=== PATIENT | female | born 1965 | race Caucasian/White ===

== ENCOUNTER 2024-06-16 11:52 | Day surgery (SDC) | payer BC, OTHER ==
[~2024-06-16 11:52] MED LIST: Pilocarpine 4% Ophth Soln 15 ML Bot EYERT SCH
[2024-06-16] MEDS: LORazepam 0.5 MG Tab PO PRN (12:53)
[2024-06-16] MEDS: Polymyxin B/Trimethoprim 10 ML Bottle EYERT SCH (13:02)
[2024-06-16] MEDS: Brimonidine 0.2% Ophth Soln 5 ML Bottle EYERT SCH (13:07)
[2024-06-16] MEDS: Phenylephrine 2.5% Ophth Soln 2 ML Bot EYERT SCH (13:12)
[2024-06-16] MEDS: Tropicamide 1% Ophth Soln 3 ML Bottle EYERT SCH (13:17)
[2024-06-16] MEDS: Tetracaine HCl/PF 0.5% 4 ML Bottle EYEBOTH SCH (13:58)
[2024-06-16] MEDS: Lidocaine 1% PF 2 ML SDV INJECT SCH (14:14)
[2024-06-16] MEDS: Cefuroxime 10 MG/ML SYRINGE EYERT SCH (14:26)
== END 2024-06-16 14:40 | disposition home or self-care (01) ==
LOC: JD.SDS 11:52
PROVIDERS: ATTEND Ophthalmology
DX: H25.813 Combined forms of age-related cataract, bilateral (principal); I10 Essential (primary) hypertension; E78.2 Mixed hyperlipidemia; J45.909 Unspecified asthma, uncomplicated; Z79.899 Other long term (current) drug therapy; Z91.041 Radiographic dye allergy status
CPT/HCPCS: 66984; A9270; J0697; J3490; V2632

== ENCOUNTER 2024-07-07 06:54 | Day surgery (SDC) | payer BC, OTHER ==
[2024-07-07] MEDS: Polymyxin B/Trimethoprim 10 ML Bottle EYELF SCH (07:24)
[2024-07-07] MEDS: Brimonidine 0.2% Ophth Soln 5 ML Bottle EYELF SCH (07:28)
[2024-07-07] MEDS: Phenylephrine 2.5% Ophth Soln 2 ML Bot EYELF SCH (07:33)
[2024-07-07] MEDS: Tropicamide 1% Ophth Soln 3 ML Bottle EYELF SCH (07:37)
[2024-07-07] MEDS: Tetracaine HCl/PF 0.5% 4 ML Bottle EYEBOTH SCH (08:06)
[2024-07-07] MEDS: Lidocaine 1% PF 2 ML SDV INJECT SCH (08:26)
[2024-07-07] MEDS: Pilocarpine 4% Ophth Soln 15 ML Bot EYELF SCH (08:39)
[2024-07-07] MEDS: Cefuroxime 10 MG/ML SYRINGE EYELF SCH (08:39)
== END 2024-07-07 08:46 ==
LOC: JD.SDS 06:54
PROVIDERS: ATTEND Ophthalmology
DX: H25.812 Combined forms of age-related cataract, left eye (principal); H52.31 Anisometropia; I10 Essential (primary) hypertension; E78.2 Mixed hyperlipidemia; J45.909 Unspecified asthma, uncomplicated; Z79.899 Other long term (current) drug therapy
CPT/HCPCS: 66984; A9270; J0697; J3490

== ENCOUNTER 2024-10-02 18:15 | Emergency (ER) | payer BC, OTHER ==
[2024-10-02 18:49] LABS: BASOPHILS ABSOLUTE AUTO 0.1 K/mm3 (0.0-0.2); BASOPHILS PERCENT AUTO 0.5 % (0.0-1.0); EOSINOPHILS ABSOLUTE AUTO 0.1 K/mm3 (0.0-0.4); EOSINOPHILS PERCENT AUTO 1.1 % (0.0-6.0); HEMATOCRIT 43.8 % (37.0-47.0); HEMOGLOBIN 14.1 gm/dl (12.0-16.0); IMMATURE GRAN ABSOLUTE AUTO 0.03 K/mm3 (0.00-0.05); IMMATURE GRAN PERCENT AUTO 0.3 % (0.0-0.4); LYMPHOCYTES ABSOLUTE AUTO 1.5 K/mm3 (1.0-4.8); LYMPHOCYTES PERCENT AUTO 15.1 % (24.0-44.0); MEAN CORPUSCULAR HEMOGLOBIN 27.9 pg (28.0-32.0); MEAN CORPUSCULAR HGB CONC 32.2 g/dl (32.0-36.0); MEAN CORPUSCULAR VOLUME 86.7 fl (83.0-99.0); MEAN PLATELET VOLUME 9.4 fl (9.4-12.3); MONOCYTES ABSOLUTE AUTO 0.6 K/mm3 (0.0-0.8); MONOCYTES PERCENT AUTO 5.7 % (0.0-8.0); NEUTROPHILS ABSOLUTE AUTO 7.8 K/mm3 (1.8-7.7); NEUTROPHILS PERCENT AUTO 77.3 % (41.0-71.0); PLATELET COUNT,PLT 201 K/mm3 (150-400); RED BLOOD CELL COUNT 5.05 M/mm3 (4.10-5.30); WHITE BLOOD CELL COUNT,WBC 10.04 K/mm3 (3.9-11.3)
[2024-10-02 18:58] LABS: INR 0.94
[2024-10-02] MEDS: Iopamidol 755 Mg/ML 100 ML Bottle IVPUSH ONE (18:59)
[2024-10-02 19:00] LABS: A/G RATIO 1.1 (1-2); ANION GAP 12.8 (5-15); BILIRUBIN TOTAL 0.5 mg/dL (0.2-1.0); C-REACTIVE PROTEIN 0.98 mg/dL (<0.30); CALCIUM 9.6 mg/dL (8.5-10.1); CREATININE 0.9 mg/dL (0.55-1.02); EST CRCL DRUG DOSING (CG) 61.45 mL/min; MAGNESIUM 2.1 mg/dL (1.8-2.4); POTASSIUM,K 3.8 mEq/L (3.5-5.1); PROTEIN TOTAL,TP 7.6 g/dl (6.4-8.2)
[2024-10-02] MEDS ORDERED: Sodium Chloride 0.9% 100 ML IV SCH (19:00)
[2024-10-02 19:21] LABS: BILIRUBIN,URINE NEGATIVE (Negative); COLOR,URINE LIGHT YELLOW (Yellow); GLUCOSE,URINE NEGATIVE (Negative); KETONES,URINE NEGATIVE (Negative); LEUKOCYTE ESTERASE,URINE 2+ (Negative); NITRITE,URINE NEGATIVE (Negative); OCCULT BLOOD,URINE 1+ (Negative); PROTEIN,URINE NEGATIVE (Negative); UROBILINOGEN,URINE 0.2 (0.2-1.0)
[2024-10-02 19:23] LABS: APPEARANCE,URINE SLT CLOUDY (Clear)
[2024-10-02 19:37] LABS: TSH 1.002 uIU/mL (0.358-3.74)
[2024-10-02 19:41] LABS: BACTERIA,URINE FEW /hpf (FEW); MUCUS,URINE NOT SEEN /hpf (FEW); WBC,URINE 30-40 /hpf (0-5)
[2024-10-02] MEDS: hydrALAZINE 20 MG/ML SDV IVPUSH ONE (20:35)
[2024-10-02] MEDS: cefTRIAXone 1 GM Vial IVPUSH ONE (21:21)
[2024-10-02] MEDS: Sodium Chloride 0.9% 10 ML Syringe FLUSH PRN (21:21)
== END 2024-10-02 21:32 | disposition home or self-care (01) ==
LOC: JD.ED 18:15
DX: R42 Dizziness and giddiness (principal); N39.0 Urinary tract infection, site not specified; E78.00 Pure hypercholesterolemia, unspecified; I10 Essential (primary) hypertension; Z91.041 Radiographic dye allergy status; Z88.8 Allergy status to other drugs, medicaments and biological substances; Z79.82 Long term (current) use of aspirin; Z79.899 Other long term (current) drug therapy
CPT/HCPCS: 36415; 70450; 70496; 70498; 80053; 81001; 82947; 83735; 84443; 84484; 85025; 85610; 85730; 86140; 87086; 87428; 93005; 96374; 96375; 99284; J0360; J0696; Q9967; 93010